=== PATIENT | male | born 1980 | race African-American/Black ===

== ENCOUNTER 2020-06-10 01:49 | Emergency (ER) | payer SELFPAY ==
[~2020-06-10] VITALS: Ht 198.1 cm; Wt 117.9 kg
[2020-06-10 02:03] VITALS: BP 157/96
== END 2020-06-10 03:03 | disposition left against medical advice (07) ==
LOC: ER 01:51
DX: M79.672 Pain in left foot (principal)
CPT/HCPCS: 82962

== ENCOUNTER 2021-01-24 04:51 | Emergency (ER) | payer SELFPAY ==
[~2021-01-24] VITALS: Ht 198.1 cm; Wt 104.3 kg
[2021-01-24 08:50] VITALS: BP 157/86
== END 2021-01-24 09:08 | disposition home or self-care (01) ==
LOC: ER 04:51
DX: S62.231A Other displaced fracture of base of first metacarpal bone, right hand, initial encounter for closed fracture (principal); F12.10 Cannabis abuse, uncomplicated; F17.210 Nicotine dependence, cigarettes, uncomplicated; X58.XXXA Exposure to other specified factors, initial encounter; Y93.89 Activity, other specified; Y92.89 Other specified places as the place of occurrence of the external cause; Y99.8 Other external cause status
CPT/HCPCS: 29125; 29130; 73140

== ENCOUNTER 2022-10-31 05:15 | Emergency (ER) | payer MEDICAID, OTHER ==
[~2022-10-31] VITALS: Ht 182.9 cm; Wt 98.2 kg
[2022-10-31 05:38] VITALS: BP 119/90; PULSE 85; RESP 18; O2SAT 98
== END 2022-10-31 08:05 | disposition left against medical advice (07) ==
LOC: ER 05:15
DX: M79.672 Pain in left foot (principal); M79.671 Pain in right foot; Z53.21 Procedure and treatment not carried out due to patient leaving prior to being seen by health care provider